=== PATIENT | female | born 1995 | race Caucasian/White ===

== ENCOUNTER 2023-06-13 18:31 | Outpatient (CLI) | payer OTHER, SELFPAY ==
--- NOTE | 2023-06-13 18:45 | MR_ITS ---
Patient: NANCY SAMAYOA Facility:?[facility] Patient ID:?[id number] Site Patient ID:?[id number]. Site :?[id number] Study:?MRI-Pelvis WO-06/13/2023 7:43:41 PM Ordering Physician:MARCELLUS GARZA Final Report: INDICATION: Possible ectopic COMPARISON: None. TECHNIQUE: Multiplanar multisequence MR imaging of the pelvis without intravenous contrast. Contrast: None FINDINGS: Typical uterine morphology. No mullerian anomalies. There is an intrauterine gestational sac at the left side of the fundus of the uterus. The gestational sac is implanted in the endometrium and the myometrial junctional zone is intact and around the outer margin of the gestational sac/endometrium. The myometrium around the gestational sac is about 6-7 millimeters at its most thin segment. The gestational sac measures about 2.2 x 1.4 x 2.0 centimeters. No perigestational hemorrhage. Normal MR appearance of the cervix and vaginal canal. Right corpus luteum cyst. No worrisome cystic ovarian lesion on either side. No solid ovarian mass. No pelvic free fluid. IMPRESSION: MR findings are most consistent with an implantation in the left side of the uterine fundus. No findings of an interstitial or other ectopic . Dictated by Carolann Boucher MD @ 06/13/2023 8:56:42 PM Signed by:?Carolann Boucher MD @06/13/2023 8:56:42 PM (Electronic Signature)
== END 2023-06-13 18:32 | disposition home or self-care (01) ==
PROVIDERS: Visit Provider Advanced Practice Midwife
DX: O36.80X0 Pregnancy with inconclusive fetal viability, not applicable or unspecified (principal); Z3A.08 8 weeks gestation of pregnancy
CPT/HCPCS: 72195; 84443; 86592; 86703; 86704; 86706; 86762; 86787; 86803; 86850; 86900; 86901; 87086; 87340

== ENCOUNTER 2023-09-05 08:31 | Outpatient (CLI) | payer OTHER, SELFPAY ==
--- NOTE | 2023-09-05 08:45 | CRLHL7_ITS ---
For Patients: As a result of the Cures Act, medical imaging exams and procedure reports are released immediately into your electronic medical record. You may view this report before your referring provider. If you have questions, please contact your health care provider. INDICATION: Evaluate anatomy. COMPARISON: none TECHNIQUE: Real time roy scale imaging of the fetus was performed as well as color Doppler analysis of the umbilical vessels. FINDINGS: Sonographic imaging demonstrates a single living intrauterine gestation. Fetus demonstrates a regular cardiac rate of 134 beats per minute. Fetus has a variable position. The placenta lies left anterior fundal without evidence of placenta previa. Edge of the placenta is located 5.8 cm from the internal cervical os. Amniotic fluid volume appears normal. Single deepest vertical pocket: 4.6 cm. The cervix is closed and measures 3.9 cm in length. The composite ultrasound gestational age is calculated at 19 weeks 2 days with an estimated sonographic due date of 01/28/2024. The estimated weight is 274 grams which lies at the 6th %. The following biometric measurements were obtained: Biparietal diameter: 4.4 cm/19 weeks 3 days 19th% Head circumference: 16.2 cm/19 weeks 0 days 5th% Abdominal circumference: 14.0 cm/19 weeks 3 days 21st% Femur length: 2.9 cm/18 weeks 5 days 6th% The HC/AC ratio measures: 1.16 range (1.09-1.26) S/D ratio 5.3. On anatomic survey, there is a normal appearance of the cerebral ventricles, cavum septi pellucidi, cisterna magna and cerebellum. The nose, lips, and facial profile appear normal. The cervical, thoracic and lumbar spine are well visualized and appear normal. There is a normal four-chamber heart view and the left and right ventricular outflow tracts appear normal. The diaphragm and stomach appear normal. The kidneys and bladder also appear normal. There is a normal three-vessel cord and cord insertion site. The four extremities appear normal. IMPRESSION: Sonographic gestational age 19 weeks 2 days and sonographic due date of 01/28/2024. Sonographic age 6 days behind the clinical age. Anatomic survey normal. Estimated weight is 6th percentile. Abdominal circumference 21st percentile. S/D ratio 5.3. Dictated by David Rios MD @ 09/05/2023 10:44:16 AM (Electronically Signed)
== END 2023-09-05 08:32 | disposition home or self-care (01) ==
LOC: US 08:32
PROVIDERS: Visit Provider Advanced Practice Midwife
DX: Z34.92 Encounter for supervision of normal pregnancy, unspecified, second trimester (principal); Z3A.19 19 weeks gestation of pregnancy
CPT/HCPCS: 76805; 76820

== ENCOUNTER 2023-10-31 10:04 | Outpatient (CLI) | payer OTHER, SELFPAY | END 2023-10-31 10:05 | disposition home or self-care (01) | LOC: NFLDREF 10:05 | PROVIDERS: Visit Provider Advanced Practice Midwife | DX: O26.899 Other specified pregnancy related conditions, unspecified trimester (principal); Z67.91 Unspecified blood type, Rh negative | CPT/HCPCS: 86592; 86850; J2791 ==

== ENCOUNTER 2023-12-12 08:30 | Outpatient (CLI) | payer OTHER, SELFPAY | END 2023-12-12 08:31 | disposition home or self-care (01) | PROVIDERS: Visit Provider Advanced Practice Midwife | DX: Z13.6 Encounter for screening for cardiovascular disorders (principal); Z13.1 Encounter for screening for diabetes mellitus | CPT/HCPCS: 80061; 82947 ==

== ENCOUNTER 2023-12-26 09:01 | Outpatient (CLI) | payer OTHER, SELFPAY ==
[2023-12-27 09:10] LABS: Strep B DNA Probe Negative (Negative)
[2023-12-27 09:44] LABS: Strep B Susceptibility Needed? No
== END 2023-12-26 09:02 | disposition home or self-care (01) ==
LOC: NFLDREF 09:01
PROVIDERS: Visit Provider Obstetrics & Gynecology
DX: Z34.93 Encounter for supervision of normal pregnancy, unspecified, third trimester (principal); Z3A.36 36 weeks gestation of pregnancy
CPT/HCPCS: 87081; 87653

== ENCOUNTER 2024-02-24 10:58 | Outpatient (CLI) | payer OTHER, SELFPAY | END 2024-02-24 10:59 | disposition home or self-care (01) | LOC: NFLDREF 10:59 | PROVIDERS: Visit Provider Registered Nurse | DX: E04.9 Nontoxic goiter, unspecified (principal) | CPT/HCPCS: 84443 ==

== ENCOUNTER 2024-12-03 08:29 | Outpatient (CLI) | payer OTHER, SELFPAY | END 2024-12-03 08:30 | disposition home or self-care (01) | PROVIDERS: Visit Provider Physician Assistant | DX: Z13.9 Encounter for screening, unspecified (principal) | CPT/HCPCS: 80061; 82947 ==